=== PATIENT | female | born 1965 | race Caucasian/White ===

== ENCOUNTER 2019-01-24 17:33 | Emergency (ER) | payer SELFPAY ==
[2019-01-24] MEDS ORDERED: Guaifenesin DM 100-10/5 ML UDCUP ONE (17:54)
--- NOTE | 2019-01-24 18:08 | RAD ---
FEXAM: Chest PA and lateral: HISTORY: Cough COMPARISON: none FINDINGS: Lung alonso are clear. Vascular markings are normal. Mild hyperexpansion. Calcified granuloma in the left lower lobe. Heart and mediastinum appear unremarkable. Vascularity is normal. Osseous structures are unremarkable. IMPRESSION: No acute finding
== END 2019-01-24 18:48 | disposition home or self-care (01) ==
LOC: BURERS 17:33
DX: J06.9 Acute upper respiratory infection, unspecified (principal); K21.9 Gastro-esophageal reflux disease without esophagitis; B20 Human immunodeficiency virus [HIV] disease; F41.0 Panic disorder [episodic paroxysmal anxiety]; F17.210 Nicotine dependence, cigarettes, uncomplicated
CPT/HCPCS: 71046; 87804; 99406

== ENCOUNTER 2019-01-29 21:45 | Emergency (ER) | payer SELFPAY ==
[2019-01-29] MEDS ORDERED: Lorazepam 2 MG/ML VIAL ONE (22:05)
[2019-01-29 22:16] LABS: #Basophils 0.1 thou/uL (0.0-0.2); #Eosinphils 0.2 thou/uL (0.0-0.7); #Lymphocytes 3.5 thou/uL (1.20-3.40); #Monocytes 0.8 thou/uL (0.11-0.59); #Neutrophils 3.2 thou/uL (1.40-6.50); %Eosinophils 2.7 % (0.0-10.0); %Lymphocytes 45.1 % (21.0-51.0); %Monocytes 10.3 % (0.0-10.0); %Neutrophils 40.9 % (42.0-75.0); Hemoglobin 12.5 g/dL (12.0-16.0); Mean Corpuscular HGB CONC 34.8 g/dL (32.0-36.0); Mean Corpuscular Hemoglobin 31.3 pg (27.0-31.0); Mean Corpuscular Volume 89.9 fL (78.0-98.0); Mean Platelet Volume 6.9 fL (7.4-10.4); Platelet Count 436 thou/uL (130-400); RBC Distribution Width 11.6 % (11.5-14.5); White Blood Cell (WBC) Count 7.8 thou/uL (4.8-10.8)
--- NOTE | 2019-01-29 22:22 | RAD ---
FExam: Chest one view HISTORY:Dyspnea Comparison: 01/24/2019 FINDINGS: Lungs: Stable hyperinflation Cardiac silhouette: Normal size Pulmonary vessels: Normal Pleural Spaces: Clear Pneumothorax: None Stable granulomatous density at left lung base. Osseous abnormalities: None of acuity. IMPRESSION: COPD
[2019-01-29 22:23] LABS: Clarity Clear (Clear); Glucose, Urine (Dipstick) Negative (Negative); Leukocyte Negative (Negative); Nitrite Negative (Negative); Protein, Urine (Dipstick) Negative (Neg-Trace); Urobilinogen 0.2 mg/dL (0.2-1.0)
[2019-01-29 22:25] LABS: ALT (SGPT) 28 U/L (8-55); AST (SGOT) 38 U/L (5-34); Acetaminophen Less than 6.0 mcg/mL (10.0-30.0); Albumin 4.1 g/dL (3.5-5.0); Alcohol Less than 10 mg/dL (Less than 10); Alkaline Phosphatase 78 U/L (40-150); Anion Gap 20 mmol/L (10-20); BUN (Urea Nitrogen) Less than 4 mg/dL (9.8-20.1); Bilirubin, Total 0.9 mg/dL (0.2-1.2); Calc. Creatinine Clearance 0 mL/min (70-130); Calcium 9.4 mg/dL (7.8-10.44); Carbon Dioxide 28 mmol/L (22-29); Chloride 81 mmol/L (98-107); Estimated GFR-MDRD Greater than 90; Globulin 2.8 g/dL (2.4-3.5); Glucose 125 mg/dL (70-105); Protein, Total 6.9 g/dL (6.0-8.3); Salicylate Less than 8.0 mg/dL (15.0-30.0); Sodium 126 mmol/L (136-145)
[2019-01-29 22:33] LABS: Bilirubin Negative (Negative)
[2019-01-29 22:34] LABS: Blood, Urine Negative (Negative)
[2019-01-29 22:36] LABS: Potassium 2.7 mmol/L (3.5-5.1)
[2019-01-29 22:38] LABS: Base Excess-Venous 7.2 mmol/L (-2.0 to 3.0); O2 Tension (PvO2) 26.8 mmHg (35.0-45.0); pH (Venous) 7.521 (7.320-7.430)
[2019-01-29 22:39] LABS: Bicarbonate (HCO3v) 30.3 mmol/L (22.0-28.0); Calcium, Ionized 0.96 mmol/L (See Comments:); Chloride 82 mmol/L (98-107); Hemoglobin - Calc 13.9 g/dL (12.0-16.0); Potassium 2.3 mmol/L (3.5-5.1); Sodium 122 mmol/L (138-145); T. Carbon Dioxide 31.5 mmol/L (22.0-28.0); vO2 Saturation-calc 57.6 % (60.0-85.0)
[2019-01-29] MEDS ORDERED: Potassium Chloride 20 MEQ TAB ONE (22:47)
[2019-01-29] MEDS ORDERED: Ondansetron PF 4 MG/2 ML Vial ONE (22:47)
[2019-01-29] MEDS ORDERED: Azithromycin 250 MG TAB ONE (23:45)
== END 2019-01-30 | disposition home or self-care (01) ==
LOC: BURERS 21:45
DX: J20.9 Acute bronchitis, unspecified (principal); R06.4 Hyperventilation; K21.9 Gastro-esophageal reflux disease without esophagitis; B20 Human immunodeficiency virus [HIV] disease; F41.0 Panic disorder [episodic paroxysmal anxiety]; F17.210 Nicotine dependence, cigarettes, uncomplicated; Z79.51 Long term (current) use of inhaled steroids
CPT/HCPCS: 71045; 80053; 80307; 81003; 82330; 82435; 82803; 84132; 84295; 84484; 85014; 85025; 85379; 93005; 94760; 96361; 96374; 96375; J2060; J2405

== ENCOUNTER 2022-12-27 10:17 | Emergency (ER) | payer SELFPAY ==
[2022-12-27 11:35] LABS: ALT (SGPT) 13 U/L (8-55); AST (SGOT) 17 U/L (5-34); Albumin 4.7 g/dL (3.5-5.0); Alkaline Phosphatase 67 U/L (40-110); Anion Gap 16 mmol/L (10-20); BUN (Urea Nitrogen) 5 mg/dL (9.8-20.1); Bilirubin, Total 0.8 mg/dL (0.2-1.2); Calc. Creatinine Clearance 0 mL/min (70-130); Calcium 9.7 mg/dL (7.8-10.44); Carbon Dioxide 26 mmol/L (22-29); Chloride 102 mmol/L (98-107); Estimated GFR 94; Globulin 2.5 g/dL (2.4-3.5); Glucose 113 mg/dL (70-105); Potassium 2.9 mmol/L (3.5-5.1); Protein, Total 7.2 g/dL (6.0-8.3); Sodium 141 mmol/L (136-145)
[2022-12-27 11:53] LABS: #Basophils 0.1 thou/uL (0.0-0.2); #Eosinphils 0.1 thou/uL (0.0-0.7); #Lymphocytes 2.8 thou/uL (1.20-3.40); #Monocytes 0.6 thou/uL (0.11-0.59); #Neutrophils 6.7 thou/uL (1.40-6.50); %Eosinophils 1.3 % (0.0-10.0); %Lymphocytes 26.9 % (21.0-51.0); %Monocytes 6.1 % (0.0-10.0); %Neutrophils 64.7 % (42.0-75.0); Hemoglobin 14.2 g/dL (12.0-16.0); Mean Corpuscular Hemoglobin 35.1 pg (27.0-31.0); Mean Corpuscular Volume 94.7 fl (78.0-98.0); Mean Platelet Volume 8.4 fL (7.4-10.4); Platelet Count 289 10x3/uL (130-400); Platelet Morphology Comment Appears Adequate; RBC Distribution Width 11.2 % (11.5-14.5); RBC Morphology Normal; Red Blood Cell (RBC) Count 4.06 mill/uL (4.20-5.40); White Blood Cell (WBC) Count 10.4 10x3/uL (4.8-10.8)
[2022-12-27] MEDS ORDERED: predniSONE 20 MG TAB ONE (12:06)
[2022-12-27] MEDS ORDERED: Ipratropium/Albuterol 3 ML NEB ONE (12:06)
== END 2022-12-27 12:43 | disposition home or self-care (01) ==
LOC: BURERS 10:17
DX: J44.1 Chronic obstructive pulmonary disease with (acute) exacerbation (principal); E87.6 Hypokalemia; F17.210 Nicotine dependence, cigarettes, uncomplicated; I50.9 Heart failure, unspecified; G62.9 Polyneuropathy, unspecified; K21.9 Gastro-esophageal reflux disease without esophagitis; Z79.899 Other long term (current) drug therapy
CPT/HCPCS: 36415; 70450; 71045; 80053; 83880; 84484; 85025; 85379; 93005; 94640; 94760; J7512; J7620

== ENCOUNTER 2024-07-27 14:54 | Emergency (ER) | payer SELFPAY ==
[2024-07-27] MEDS ORDERED: Pantoprazole 40 MG VIAL ONE (15:14)
[2024-07-27] MEDS ORDERED: Aspirin Chewable 81 MG TAB ONE (15:14)
[2024-07-27] MEDS ORDERED: Nitroglycerin 0.4 MG TAB 1 EACH ONE (15:27)
[2024-07-27 15:30] LABS: #Basophils 0.1 thou/uL (0.0-0.2); #Eosinphils 0.2 thou/uL (0.0-0.7); #Lymphocytes 3.6 thou/uL (1.20-3.40); #Monocytes 0.7 thou/uL (0.11-0.59); %Basophils 0.9 % (0.0-1.0); %Eosinophils 1.8 % (0.0-10.0); %Lymphocytes 30.8 % (21.0-51.0); %Neutrophils 60.4 % (42.0-75.0); Hematocrit 39.8 % (36.0-47.0); Hemoglobin 13.2 g/dL (12.0-16.0); Mean Corpuscular HGB CONC 33.2 g/dL (32.0-36.0); Mean Corpuscular Hemoglobin 31.3 pg (27.0-31.0); Mean Corpuscular Volume 94.3 fl (78.0-98.0); Mean Platelet Volume 7.3 fL (7.4-10.4); Platelet Count 385 10x3/uL (130-400); RBC Distribution Width 11.3 % (11.5-14.5); Red Blood Cell (RBC) Count 4.22 mill/uL (4.20-5.40); White Blood Cell (WBC) Count 11.6 10x3/uL (4.8-10.8)
[2024-07-27 15:49] LABS: ALT (SGPT) 14 U/L (8-55); AST (SGOT) 16 U/L (5-34); Albumin 4.3 g/dL (3.5-5.0); Alkaline Phosphatase 72 U/L (40-110); Anion Gap 16 mmol/L (10-20); BUN (Urea Nitrogen) 7 mg/dL (9.8-20.1); Bilirubin, Total 0.3 mg/dL (0.2-1.2); Calc. Creatinine Clearance 0 mL/min (70-130); Carbon Dioxide 26 mmol/L (22-29); Chloride 104 mmol/L (98-107); Estimated GFR 87; Glucose 95 mg/dL (70-105); Potassium 3.4 mmol/L (3.5-5.1); Protein, Total 7.3 g/dL (6.0-8.3); Sodium 143 mmol/L (136-145)
[2024-07-27 15:50] LABS: Troponin I Less than 0.010 ng/mL (< 0.028)
[2024-07-27] MEDS ORDERED: Acetaminophen 500 MG TAB ONE (16:01)
[2024-07-27] MEDS ORDERED: hydrOXYzine 25 MG TAB ONE (17:32)
[2024-07-27 19:11] LABS: Troponin I Less than 0.010 ng/mL (< 0.028)
[2024-07-27 19:57] LABS: Amphetamine Not Detected (NotDetected); Barbiturates Screen Not Detected (NotDetected); Benzodiazepine Screen Not Detected (NotDetected); Cocaine Metabolite Screen Not Detected (NotDetected); Methadone Not Detected (NotDetected); Methamphetamine Not Detected (NotDetected); Opiate Screen Not Detected (NotDetected); Oxycodone Screen Not Detected (NotDetected); Phencyclidine (PCP) Not Detected (NotDetected); THC/Cannabinoid Screen Detected (NotDetected); Tricyclic Screen Not Detected (NotDetected)
== END 2024-07-27 20:00 | disposition home or self-care (01) ==
LOC: BURERS 14:54
DX: J44.9 Chronic obstructive pulmonary disease, unspecified (principal); R03.0 Elevated blood-pressure reading, without diagnosis of hypertension; F17.210 Nicotine dependence, cigarettes, uncomplicated; I50.9 Heart failure, unspecified; Z79.82 Long term (current) use of aspirin
CPT/HCPCS: 36415; 71046; 80053; 80306; 83880; 84484; 85025; 85379; 93005; 96374; J2470